=== PATIENT | male | born 1960 | race Caucasian/White ===

== ENCOUNTER 2016-09-12 11:25 | Day surgery (SDC) | payer MEDICARE ==
[~2016-09-12 11:25] MED LIST: ASPI81 PO; LAMO25TA PO; LISI-360 PO; OXCA300T2 PO; SIMV20 PO; TOPR50TA PO; XANA2TAB2 PO
[2016-09-12] MEDS ORDERED: NS 1000 ML IV SCH (12:00)
[2016-09-12] MEDS ORDERED: SIMV20TA PO (12:23)
[2016-09-12] MEDS ORDERED: METO25TA3 PO (12:23)
[2016-09-12] MEDS ORDERED: LAMO25CH CHEW (12:23)
[2016-09-12] MEDS ORDERED: OXCA300T PO (12:23)
[2016-09-12] MEDS ORDERED: HYDR500C2 PO (12:23)
[2016-09-12] MEDS ORDERED: ALPR2TAB3 PO (12:23)
[2016-09-12] MEDS ORDERED: CHLORHEXIDINE GLUCONATE 2 % 1 PACK (2 CLOTHS) TOPICAL SCH (12:30)
[2016-09-12] MEDS ORDERED: ceFAZolin 2 GM PREMIX 50 ML IV SCH (12:30)
[2016-09-12] MEDS ORDERED: POVIDONE IODINE 5% (ANTISEPSIS KIT) 4 APPLICATIONS EACH NARE SCH (12:30)
[2016-09-12] MEDS ORDERED: MUPIROCIN 2% OINT 1 APPLIC/GM SYR NASAL SCH (12:30)
[2016-09-12] MEDS ORDERED: MIDAZOLAM HCL 5 MG/5 ML VIAL ONE (12:32)
--- NOTE | 2016-09-12 14:13 | MA ---
cc: MIKA ARTHUR MD DATE: 09/12/[address] Mika Arthur PREPROCEDURE DIAGNOSIS Syncope. POSTPROCEDURE DIAGNOSIS Successful loop recorder insertion. PROCEDURE PERFORMED 1. 15 minutes of moderate IV sedation. 2. Loop recorder insertion. DESCRIPTION OF PROCEDURE The patient was brought to the DOC unit in the postabsorptive state. After informed consent was obtained 5 mg of Versed and 75 mcg of fentanyl were given for moderate IV sedation. Next, a [employer] LIN[employer] loop recorder was inserted subcutaneously to the left chest. The patient tolerated the procedure well without any apparent complication. Tachybrady pause and atrial fibrillation detection was enabled. The serial number is [id number]. Mika Arthur MD CHRIS/BT /1:58 PM /2:09 PM
== END 2016-09-12 16:08 | disposition home or self-care (01) ==
LOC: HDOC 11:25 → HDIC 11:26 → HDOC 16:08
PROVIDERS: ATTEND Nuclear Medicine Nuclear Cardiology
DX: R55 Syncope and collapse (principal)
CPT/HCPCS: 33282; C1764; J0690; J2250; J3010